=== PATIENT | female | born 1995 | race Caucasian/White ===

== ENCOUNTER 2016-10-24 13:47 | Emergency (ER) | payer BC ==
[2016-10-24 15:07] VITALS: BP 132/83
[2016-10-24] MEDS ORDERED: Azithromycin TAB* 250 MG PO ONE (15:25)
--- NOTE | 2016-10-24 15:25 | UC ---
Complaint Female HPI - HPI Summary HPI Summary: 20 yo female was informed her boyfriend was dxed with chlamydia No vaginal d/c or itch No dysuria no f/c no back or abd pain no pelvic pain no uti symptoms she does not desire testing for HIV/Hep C /RPR etc - History Of Current Complaint Chief Complaint: UCGU Stated Complaint: PERSONAL Time Seen by Provider: 10/24/16 15:16 Hx Obtained From: Patient Hx Last Menstrual Period: 10/15/16 ?: No Onset/Duration: Sudden Onset Timing: Constant - NA Severity Initially: Mild - NONE Severity Currently: None Pain Intensity: 0 Pain Scale Used: 0-10 Numeric Character: Not Applicable Aggravating Factor(s): Nothing Alleviating Factor(s): Nothing Associated Signs And Symptoms: Positive: Negative - Allergies/Home Medications Allergies/Adverse Reactions: Allergies Allergy/AdvReac Type Severity Reaction Status Date / Time Amoxicillin Allergy Severe Hives Verified 10/24/16 15:07 PMH/Surg Hx/FS Hx/Imm Hx Previously Healthy: Yes Respiratory History Of: Denies: Asthma GI/ History Of: Denies: Gastroesophageal Reflux - Surgical History Surgical History: None - Family History Known Family History: Positive: Cardiac Disease, Hypertension, Diabetes - Social History Alcohol Use: Occasionally Alcohol Amount: occ. weekends Substance Use Type: None Smoking Status (MU): Never Smoked Tobacco Have You Smoked in the Last Year: No - Immunization History Most Recent Influenza Vaccination: NOT IN Vaccination Up to Date: Yes Review of Systems Constitutional: Negative Skin: Negative Eyes: Negative ENT: Negative Respiratory: Negative Cardiovascular: Negative Gastrointestinal: Negative Genitourinary: Negative Motor: Negative Neurovascular: Negative Musculoskeletal: Negative Neurological: Negative Psychological: Negative All Other Systems Reviewed And Are Negative: Yes Physical Exam Triage Information Reviewed: Yes Appearance: Well-Appearing, No Pain Distress, Well-Nourished Vital Signs: Initial Vital Signs Temp 98.4 F 10/24/16 15:03 Pulse 90 10/24/16 15:03 Resp 14 10/24/16 15:03 BP 132/83 10/24/16 15:03 Pulse Ox 100 10/24/16 15:03 Vital Signs Reviewed: Yes Eyes: Positive: Conjunctiva Clear ENT: Positive: Hearing grossly normal, Pharynx normal. Negative: Nasal congestion, Nasal drainage, Tonsillar swelling, Tonsillar exudate, Trismus, Muffled/hoarse voice Neck: Positive: Supple, Nontender, No Lymphadenopathy Respiratory: Positive: Lungs clear, Normal breath sounds, No respiratory distress, No accessory muscle use Cardiovascular: Positive: RRR, No Murmur Abdomen Description: Positive: Nontender, Soft, Other: - ext gen- normal, vagina -scant whitish d/c, cx- No CMT, adenexa-non tender. Negative: CVA Tenderness (R ), CVA Tenderness (L), Distended, Guarding, Hepatomegaly, McBurney's Point Tenderness, Peritoneal Signs, Pulsatile Mass, Splenomegaly Bowel Sounds: Positive: Present Musculoskeletal: Positive: ROM Intact, No Edema Neurological: Positive: Alert Psychological Exam: Normal Skin Exam: Normal Complaint Female Dx - Differential Dx/Diagnosis Provider Diagnoses: Chlamydia exposure Discharge - Discharge Plan Condition: Stable Disposition: HOME Patient Education Materials: Chlamydia (ED) Referrals: Maribel Sepulveda MD [Primary Care Provider] - If Needed Additional Instructions: you were treated for chlamydia tests are pending recheck for pelvic pain/fever or any concerns
== END 2016-10-24 15:53 | disposition home or self-care (01) ==
LOC: UCCORT 13:47
DX: Z20.2 Contact with and (suspected) exposure to infections with a predominantly sexual mode of transmission (principal)
CPT/HCPCS: 81025; 87480; 87491; 87510; 87591; 87661; 99212; A9270-GY; G0463

== ENCOUNTER 2016-11-17 17:39 | Emergency (ER) | payer BC ==
[2016-11-17 18:18] VITALS: BP 119/67
--- NOTE | 2016-11-17 18:30 | UC ---
Throat Pain/Nasal Lencho HPI - HPI Summary HPI Summary: body aches, chills, fever, QUICK, cough for 2 days. - History of Current Complaint Chief Complaint: UCGeneralIllness Stated Complaint: FLU LIKE Time Seen by Provider: 11/17/16 18:09 Hx Obtained From: Patient Hx Last Menstrual Period: 11/11/16 ?: No Onset/Duration: Sudden Onset, Lasting Days Severity: Severe Pain Intensity: 7 Pain Scale Used: 0-10 Numeric Cough: Nonproductive Associated Signs & Symptoms: Positive: Dysphagia, Sinus Discomfort, Nasal Discharge, Fever - Epiglottits Risk Factors Epiglottis Risk Factors: Negative - Allergies/Home Medications Allergies/Adverse Reactions: Allergies Allergy/AdvReac Type Severity Reaction Status Date / Time Amoxicillin Allergy Severe Hives Verified 11/17/16 18:18 PMH/Surg Hx/FS Hx/Imm Hx Previously Healthy: Yes Respiratory History Of: Denies: Asthma GI/ History Of: Denies: Gastroesophageal Reflux - Surgical History Surgical History: None - Family History Known Family History: Positive: None, Hypertension, Diabetes Negative: Cardiac Disease - Social History Alcohol Use: Occasionally Alcohol Amount: occ. weekends Substance Use Type: None Smoking Status (MU): Never Smoked Tobacco Have You Smoked in the Last Year: No - Immunization History Most Recent Influenza Vaccination: none Vaccination Up to Date: Yes Review of Systems Constitutional: Fever, Fatigue Skin: Negative Eyes: Negative ENT: Sore Throat, Nasal Discharge Respiratory: Cough Cardiovascular: Negative Gastrointestinal: Negative Genitourinary: Negative Motor: Negative Neurovascular: Negative Musculoskeletal: Myalgia Neurological: Headache Psychological: Negative All Other Systems Reviewed And Are Negative: Yes Physical Exam Triage Information Reviewed: Yes Appearance: Well-Nourished, Ill-Appearing, Pain Distress Vital Signs: Initial Vital Signs Temp 101.9 F 11/17/16 18:13 Pulse 129 11/17/16 18:13 Resp 18 11/17/16 18:13 BP 119/67 11/17/16 18:13 Pulse Ox 98 11/17/16 18:13 Vital Signs Reviewed: Yes Eye Exam: Normal Eyes: Positive: Conjunctiva Clear ENT: Positive: Hearing grossly normal, Pharynx normal, Nasal congestion, Nasal drainage, TM bulging, Muffled/hoarse voice Dental Exam: Normal Neck exam: Normal Neck: Positive: Supple, Nontender, Enlarged Nodes @ - bilateral cervical Respiratory Exam: Normal Respiratory: Positive: Chest non-tender, Lungs clear, Normal breath sounds Cardiovascular Exam: Normal Cardiovascular: Positive: RRR, No Murmur, Pulses Normal Abdominal Exam: Normal Abdomen Description: Positive: Nontender, No Organomegaly, Soft Bowel Sounds: Positive: Present Musculoskeletal Exam: Normal Musculoskeletal: Positive: Strength Intact, ROM Intact, No Edema Neurological Exam: Normal Neurological: Positive: Alert, Muscle Tone Normal Psychological Exam: Normal Skin Exam: Normal Throat Pain/Nasal Course/Dx - Course Course Of Treatment: hx obtained, exam performed, medication reviewed, rapid flu positive - Differential Dx/Diagnosis Differential Diagnosis/HQI/PQRI: Influenza, Laryngitis, Otitis Media, Pharyngitis, Sinusitis, Tonsillitis, URI Provider Diagnoses: influenza Discharge - Discharge Plan Condition: Stable Disposition: HOME Patient Education Materials: Influenza (ED) Forms: *School Release Referrals: Maribel Sepulveda MD [Primary Care Provider] - Additional Instructions: increase your fluid intake and get plenty of rest. follow up with any worsening symptoms.
== END 2016-11-17 18:50 | disposition home or self-care (01) ==
LOC: UCCORT 17:39
DX: J11.1 Influenza due to unidentified influenza virus with other respiratory manifestations (principal); Z88.0 Allergy status to penicillin
CPT/HCPCS: 87502; 99211; G0463

== ENCOUNTER 2018-03-05 11:57 | Emergency (ER) | payer BC ==
[2018-03-05 13:14] VITALS: BP 111/61
--- NOTE | 2018-03-05 13:27 | UC ---
Skin Complaint HPI - HPI Summary HPI Summary: 22 year old female with skin complaint. LEFT LOWER LEG INSECT BITE. SOMETIME LAST THURSDAY PT NOTICED THE BITE WITH SWELLING OF THE AREA. SWELLING HAS GONE DOWN NOW. SHE IS NOT SURE WHAT BIT HER. SHE WAS IN THE [facility] AT THE TIME. bite may have happened about 5-6 days ago . heal;ing well no fever. no discharge. no pain no redness with tenderness to touch or warmth. mom concerned and wanted her to be evaluated. no tick noted ever on the person. maybe spider bite she thought. [ End ] - History of Current Complaint Chief Complaint: UCSkin Time Seen by Provider: 03/05/18 13:04 Stated Complaint: BUG BITE Hx Obtained From: Patient Hx Last Menstrual Period: 02/27/18 Onset/Duration: Gradual Onset Onset Severity: Mild Current Severity: Mild Pain Intensity: 0 Aggravating Factor(s): Nothing Alleviating Factor(s): Nothing Related History: Insect Bite/Sting, Possible Reaction to: Animal, Possible Reaction to: Insect, Possible Reaction to: Environmental Exposure - Allergy/Home Medications Allergies/Adverse Reactions: Allergies Allergy/AdvReac Type Severity Reaction Status Date / Time amoxicillin Allergy Severe Hives Verified 03/05/18 13:08 Review of Systems Skin: Rash - insect bite with redness Is Patient Immunocompromised?: No All Other Systems Reviewed And Are Negative: Yes PMH/Surg Hx/FS Hx/Imm Hx Previously Healthy: Yes - Surgical History Surgical History: None - Family History Known Family History: Positive: None, Hypertension, Diabetes Negative: Cardiac Disease - Social History 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 weekends Substance Use Type: None Smoking Status (MU): Never Smoked Tobacco Have You Smoked in the Last Year: No - Immunization History Most Recent Influenza Vaccination: none Vaccination Up to Date: Yes Physical Exam Triage Information Reviewed: Yes Appearance: Well-Appearing, No Pain Distress, Well-Nourished Vital Signs: Initial Vital Signs Temp 98.3 F 03/05/18 13:08 Pulse 85 03/05/18 13:08 Resp 18 03/05/18 13:08 BP 111/61 03/05/18 13:08 Pulse Ox 100 03/05/18 13:08 Vital Signs Reviewed: Yes ENT Exam: Normal Respiratory Exam: Normal Cardiovascular Exam: Normal Musculoskeletal Exam: Normal Neurological Exam: Normal Psychological Exam: Normal Skin: Positive: Other - left anterior otero just lateral to mid shaft with round raised urticarial lesion with mild darkening around the raised area. no erythema. no discharge. no EM. no streaking. no ecchymosis. no abscess. no homans sign. non tender to palpation Course/Dx - Course Course Of Treatment: no tick ever noted on patient. no active infection. with the darker area around the raised area concern for capillariies being affected superficially. no EM. no discharge. non tender. she and I both think it could have been spider bite that is healing at this time. if any concerns RTO for further eval. discussed doxy for prophylaxis but she declined at this time. - Differential Diagnoses - Skin Complaint Differential Diagnoses: Cellulitis, Contact Dermatitis, Local Allergic Reaction , Urticaria - Diagnoses Provider Diagnoses: insect bite Discharge - Sign-Out/Discharge Documenting (check all that apply): Discharge/Admit/Transfer - Discharge Plan Condition: Good Disposition: HOME Patient Education Materials: Insect Bite or Sting (ED) Referrals: Maribel Sepulveda MD [Primary Care Provider] - 4 Days Additional Instructions: At this time there appears to be no active infection to be concerned about. If redness / pain / infection develops please return for further evaluation. In the future that area may develop in to a dermatofibroma of note . - Billing Disposition and Condition Condition: GOOD Disposition: HOME
== END 2018-03-05 13:52 | disposition home or self-care (01) ==
LOC: UCCORT 11:57
DX: S80.862A Insect bite (nonvenomous), left lower leg, initial encounter (principal); W57.XXXA Bitten or stung by nonvenomous insect and other nonvenomous arthropods, initial encounter; Y93.9 Activity, unspecified; Y92.9 Unspecified place or not applicable; Z88.0 Allergy status to penicillin
CPT/HCPCS: 99211; G0463